=== PATIENT | male | born 1960 | race Hispanic/Latino ===

== ENCOUNTER → 2017-10-18 | Outpatient (CLI) | payer OTHER ==
[2017-10-18 11:36] LABS: BASOPHILS % (AUTO) 0.9 % (0.0-5.0); HEMATOCRIT 49.6 % (42-54); LYMPHOCYTES % (AUTO) 37.8 % (21.0-51.0); MEAN CORPUSCULAR HGB CONC 33.1 g/dL (32.0-36.0); MEAN CORPUSCULAR VOLUME 72.4 fL (79-99); MONOCYTES % (AUTO) 10.6 % (3.0-13.0); NEUTROPHILS % (AUTO) 48.7 % (40.0-77.0); NUCLEATED RED BLOOD CELLS 0.1 % (0.0-0.19); PLATELET COUNT (AUTO) 217 K/uL (130-400); RED BLOOD CELL COUNT(AUTO) 6.84 MIL/uL (4.50-6.20); RED CELL DISTRIBUTION WIDTH 16.1 % (11.0-15.5); WHITE BLOOD COUNT (AUTO) 5.5 K/uL (4.8-10.8)
[2017-10-18 11:45] LABS: HEMOGLOBIN A1C 8.6 % (4.0-6.0)
[2017-10-18 12:00] LABS: ALBUMIN 3.7 g/dL (3.5-5.0); BILIRUBIN,TOTAL 0.5 mg/dL (0.2-1.0); CREATININE 1.3 mg/dL (0.5-1.5); POTASSIUM 4.1 mmol/L (3.5-5.1); THYROID STIMULATING HORMONE 1.19 uIU/mL (0.36-3.74); TOTAL PROTEIN, SERUM 8.8 g/dL (6.0-8.3)
== END | disposition home or self-care (01) ==
LOC: LAB 10:48
PROVIDERS: ATTEND Family Medicine
DX: E11.9 Type 2 diabetes mellitus without complications (principal); I10 Essential (primary) hypertension; E66.9 Obesity, unspecified; R97.20 Elevated prostate specific antigen [PSA]
CPT/HCPCS: 36415; 80053; 80061; 83036; 84153; 84443; 85025

== ENCOUNTER → 2018-10-22 | Outpatient (CLI) | payer OTHER ==
[2018-10-22 12:17] LABS: BASOPHILS % (AUTO) 1.4 % (0.0-5.0); EOSINOPHILS % (AUTO) 2.4 % (0.0-8.0); HEMATOCRIT 52.2 % (42-54); LYMPHOCYTES % (AUTO) 38.4 % (21.0-51.0); MEAN CORPUSCULAR HEMOGLOBIN 23.5 pg (27.0-33.0); MEAN CORPUSCULAR HGB CONC 32.4 g/dL (32.0-36.0); MEAN CORPUSCULAR VOLUME 72.6 fL (79-99); NEUTROPHILS % (AUTO) 47.8 % (40.0-77.0); NUCLEATED RED BLOOD CELLS 0.1 % (0.0-0.19); PLATELET COUNT (AUTO) 213 K/uL (130-400); RED BLOOD CELL COUNT(AUTO) 7.18 MIL/uL (4.50-6.20); WHITE BLOOD COUNT (AUTO) 5.9 K/uL (4.8-10.8)
[2018-10-22 12:39] LABS: ALBUMIN 3.6 g/dL (3.5-5.0); BILIRUBIN,TOTAL 0.5 mg/dL (0.2-1.0); CREATININE 1.2 mg/dL (0.5-1.5); POTASSIUM 4.1 mmol/L (3.5-5.1); THYROID STIMULATING HORMONE 0.85 uIU/mL (0.36-3.74); TOTAL PROTEIN, SERUM 8.4 g/dL (6.0-8.3)
== END | disposition home or self-care (01) ==
LOC: LAB 11:33
PROVIDERS: ATTEND Family Medicine
DX: Z76.0 Encounter for issue of repeat prescription (principal); I10 Essential (primary) hypertension; E11.9 Type 2 diabetes mellitus without complications; E66.9 Obesity, unspecified
CPT/HCPCS: 36415; 80053; 80061; 84443; 85025

== ENCOUNTER → 2019-05-08 | Outpatient (CLI) | payer OTHER ==
[~2019-05-08] MED LIST: REGADENOSON 0.4 MG/5 ML PF SYG IVP SCH
== END | disposition home or self-care (01) ==
LOC: RAH 09:36
PROVIDERS: ATTEND Family Medicine
DX: I10 Essential (primary) hypertension (principal); R07.9 Chest pain, unspecified; Z82.49 Family history of ischemic heart disease and other diseases of the circulatory system
CPT/HCPCS: 78452; 93017; 96374; A9500 ×2; J2785

== ENCOUNTER → 2019-05-11 | Outpatient (CLI) | payer OTHER | END | disposition home or self-care (01) | LOC: RAH 08:59 | PROVIDERS: ATTEND Family Medicine | DX: Z13.6 Encounter for screening for cardiovascular disorders (principal) | CPT/HCPCS: 75571 ==

== ENCOUNTER → 2020-01-08 | Outpatient (CLI) | payer OTHER ==
[~2020-01-08] MED LIST changes: +AMLO10TA7 PO; +LISI1TAB51 PO; -REGADENOSON 0.4 MG/5 ML PF SYG IVP SCH
== END | disposition home or self-care (01) ==
LOC: LAB 09:14
PROVIDERS: ATTEND Family Medicine
DX: Z12.5 Encounter for screening for malignant neoplasm of prostate (principal); I10 Essential (primary) hypertension; E11.9 Type 2 diabetes mellitus without complications; Z12.11 Encounter for screening for malignant neoplasm of colon
CPT/HCPCS: 36415; 80053; 80061; 82043; 83036; 84153; 84443; 85025

== ENCOUNTER 2020-01-09 10:20 | Inpatient (IN) | payer OTHER ==
[~2020-01-09] VITALS: Ht 172.7 cm; Wt 88.0 kg
[2020-01-09] MEDS ORDERED: IOHEXOL-350 75 ML VIAL IV ONE (10:30)
[2020-01-09 10:36] LABS: BASOPHILS % (AUTO) 0.8 % (0.0-5.0); EOSINOPHILS % (AUTO) 1.6 % (0.0-8.0); HEMATOCRIT 53.4 % (42-54); LYMPHOCYTES % (AUTO) 38.7 % (21.0-51.0); MEAN CORPUSCULAR HEMOGLOBIN 28.8 pg (27.0-33.0); MEAN CORPUSCULAR HGB CONC 35.6 g/dL (32.0-36.0); NEUTROPHILS % (AUTO) 48.4 % (40.0-77.0); PLATELET COUNT (AUTO) 182 K/uL (130-400); RED BLOOD CELL COUNT(AUTO) 6.59 MIL/uL (4.50-6.20); RED CELL DISTRIBUTION WIDTH 13.2 % (11.0-15.5); WHITE BLOOD COUNT (AUTO) 6.4 K/uL (4.8-10.8)
[2020-01-09 10:45] LABS: CREATININE 1.3 mg/dL (0.5-1.5); POTASSIUM 3.8 mmol/L (3.5-5.1)
[2020-01-09 10:46] LABS: INR 1.12 (0.85-1.15); PARTIAL THROMBOPLASTIN TIME 28.7 SEC (26.3-35.5)
[2020-01-09 10:50] LABS: ALBUMIN 3.7 g/dL (3.5-5.0); BILIRUBIN,TOTAL 0.9 mg/dL (0.2-1.0)
[2020-01-09] MEDS ORDERED: ASPIRIN 325 MG TABLET ONE (12:26)
[2020-01-09 13:33] LABS: HEMOGLOBIN A1C 8.9 % (4.0-6.0)
[2020-01-09 16:00] VITALS: BP 139/103
--- NOTE | 2020-01-09 16:35 | NUR ---
DR. TYLER ALONZO CALLED DR. SCOTT AND READ THE RESULTS OF MR OF HEAD, STATED HE WILL BE CALLING DR. DELAROSA. NO NEW ORDERS AT THIS TIME.
[2020-01-09] MEDS ORDERED: LISI1TAB51 PO (16:50)
[2020-01-09] MEDS ORDERED: AMLO10TA7 PO (16:50)
--- NOTE | 2020-01-09 17:00 | NUR ---
bed side swallow patient was able to sip water without any complication.
--- NOTE | 2020-01-09 17:30 | NUR ---
DR. SCOTT SPOKE TO DR. DELAROSA AND HE WILL COME TO SEE PATIENT ON SATURDAY
[2020-01-09] MEDS: SODIUM CHLORIDE 0.9% 1000ML 1,000 ML IV SCH (17:36)
[2020-01-09] MEDS: INSULIN HUMULIN R 100 UNIT/ML 3ML SQ SCH ×2 (17:44→20:57)
--- NOTE | 2020-01-09 19:31 | NUR ---
spoke with charge nurse amy. she adviced me to claridy order with nurse cole rn, tomorrow about neuro consult narro or neurovascular consult doctor tyrel. patient already had a telecommunication consult with a neuro doctor.
[2020-01-09 19:52] VITALS: BP 136/97
[2020-01-10 00:21] VITALS: BP 149/102
[2020-01-10 03:55] VITALS: BP 133/85
[2020-01-10 03:56] LABS: BASOPHILS % (AUTO) 0.6 % (0.0-5.0); HEMATOCRIT 48.4 % (42-54); LYMPHOCYTES % (AUTO) 36.7 % (21.0-51.0); MEAN CORPUSCULAR HEMOGLOBIN 28.6 pg (27.0-33.0); MEAN CORPUSCULAR HGB CONC 34.9 g/dL (32.0-36.0); MEAN CORPUSCULAR VOLUME 81.9 fL (79-99); MONOCYTES % (AUTO) 10.5 % (3.0-13.0); NEUTROPHILS % (AUTO) 49.9 % (40.0-77.0); PLATELET COUNT (AUTO) 187 K/uL (130-400); RED BLOOD CELL COUNT(AUTO) 5.91 MIL/uL (4.50-6.20); RED CELL DISTRIBUTION WIDTH 12.7 % (11.0-15.5); WHITE BLOOD COUNT (AUTO) 7.1 K/uL (4.8-10.8)
[2020-01-10 04:04] LABS: HEMOGLOBIN A1C 9.3 % (4.0-6.0)
[2020-01-10 04:20] LABS: ALBUMIN 3.1 g/dL (3.5-5.0); BILIRUBIN,TOTAL 0.7 mg/dL (0.2-1.0); CREATININE 1.2 mg/dL (0.5-1.5); POTASSIUM 3.5 mmol/L (3.5-5.1); TOTAL PROTEIN, SERUM 7.8 g/dL (6.0-8.3)
[2020-01-10] MEDS: INSULIN HUMULIN R 100 UNIT/ML 3ML SQ SCH ×4 (06:13→21:00)
[2020-01-10] MEDS: SODIUM CHLORIDE 0.9% 1000ML 1,000 ML IV SCH (06:28)
[2020-01-10 08:00] VITALS: BP 142/73
[2020-01-10] MEDS ORDERED: ERGOCALCIFEROL (VITAMIN D2) 50,000 UNIT CAPSULE PO SCH (08:30)
[2020-01-10 08:55] LABS: CRP QUANTITATIVE 3.5 mg/L (0.00-9.0)
[2020-01-10] MEDS ORDERED: ENOXAPARIN SODIUM 40 MG/0.4 ML SYRINGE SQ SCH (09:00)
[2020-01-10] MEDS: ACETYLCYSTEINE 20% 200MG/ML 4ML VIAL PO SCH ×2 (09:00→19:38)
--- NOTE | 2020-01-10 09:05 | NUR ---
DR. COATS SPOKE TO MD VIA TELEPHONE. TOLD ME THAT NO NEUROSURGICAL INTERVENTIONS NEEDED, BUT THAT HE RECOMMENDS AGGRESSIVE MEDICAL MANAGEMENT AND TRANSFER TO [facility]. SPOKE TO DR. Tyson GARCIA REGARDING DR. COATS RECOMMENDATIONS AND DR. GARCIA REPLIED THAT PATIENT CONDITION DOES NOT WARRANT A TRANSFER [place] [facility].
[2020-01-10] MEDS: HYDROCHLOROTHIAZIDE 25 MG TABLET PO SCH (10:36)
[2020-01-10] MEDS: ASPIRIN 81MG TAB.CHEW PO SCH (10:42)
[2020-01-10] MEDS: LISINOPRIL 20 MG TABLET PO SCH (10:42)
[2020-01-10] MEDS: ZINC SULFATE 220 CAPSULE PO SCH (10:43)
[2020-01-10] MEDS: AMLODIPINE BESYLATE 5 MG TAB PO SCH (10:43)
[2020-01-10] MEDS: CLOPIDOGREL BISULFATE 75 MG TAB PO SCH (10:43)
[2020-01-10] MEDS: ASCORBIC ACID 500 MG TAB PO SCH (10:43)
[2020-01-10] MEDS: ENOXAPARIN SODIUM 40 MG/0.4 ML SYRINGE SQ SCH (10:46)
[2020-01-10] MEDS: ATORVASTATIN CALCIUM 20 MG TABLET PO SCH (10:46)
[2020-01-10 11:00] VITALS: BP 140/94
--- NOTE | 2020-01-10 15:34 | NUR ---
INITIAL: Call placed to pt's room this afternoon to discuss dcp. Pt mentions that prior to admission he was living w his spouse and 2 adult children. Pt is independent w ambulation and ADLs, he does not own any DME or receive services. PT states that he feels safe and comfortable to return home at mo. CM to continue to follow and wait for Md recommendations. Addendum: 01/10/20 at 1554 by OPAL CHRISTIANSEN Amended: Links added.
[2020-01-10 16:00] VITALS: BP 128/93
[2020-01-10 20:00] VITALS: BP 159/99
[2020-01-11] VITALS: BP 119/83
[2020-01-11 04:00] VITALS: BP 123/85
[2020-01-11 05:33] LABS: BASOPHILS % (AUTO) 0.4 % (0.0-5.0); EOSINOPHILS % (AUTO) 1.4 % (0.0-8.0); HEMATOCRIT 50.1 % (42-54); LYMPHOCYTES % (AUTO) 34.5 % (21.0-51.0); MEAN CORPUSCULAR HEMOGLOBIN 28.3 pg (27.0-33.0); MEAN CORPUSCULAR HGB CONC 34.7 g/dL (32.0-36.0); MEAN CORPUSCULAR VOLUME 81.5 fL (79-99); MONOCYTES % (AUTO) 10.6 % (3.0-13.0); NEUTROPHILS % (AUTO) 52.8 % (40.0-77.0); PLATELET COUNT (AUTO) 180 K/uL (130-400); RED BLOOD CELL COUNT(AUTO) 6.15 MIL/uL (4.50-6.20); RED CELL DISTRIBUTION WIDTH 12.8 % (11.0-15.5)
[2020-01-11 05:46] LABS: ALBUMIN 3.1 g/dL (3.5-5.0); CREATININE 1.2 mg/dL (0.5-1.5); CRP QUANTITATIVE 3.4 mg/L (0.00-9.0); POTASSIUM 3.6 mmol/L (3.5-5.1); TOTAL PROTEIN, SERUM 7.9 g/dL (6.0-8.3)
[2020-01-11] MEDS: INSULIN HUMULIN R 100 UNIT/ML 3ML SQ SCH ×4 (06:15→21:00)
[2020-01-11 08:00] VITALS: BP 121/85
[2020-01-11] MEDS: LISINOPRIL 20 MG TABLET PO SCH (09:00)
[2020-01-11] MEDS: AMLODIPINE BESYLATE 5 MG TAB PO SCH (09:00)
[2020-01-11] MEDS: HYDROCHLOROTHIAZIDE 25 MG TABLET PO SCH (09:00)
[2020-01-11] MEDS: ACETYLCYSTEINE 20% 200MG/ML 4ML VIAL PO SCH ×2 (09:00→19:18)
[2020-01-11] MEDS: ASPIRIN 81MG TAB.CHEW PO SCH (09:12)
[2020-01-11] MEDS: ATORVASTATIN CALCIUM 20 MG TABLET PO SCH (09:13)
[2020-01-11] MEDS: ZINC SULFATE 220 CAPSULE PO SCH (09:13)
[2020-01-11] MEDS: CLOPIDOGREL BISULFATE 75 MG TAB PO SCH (09:13)
[2020-01-11] MEDS: ASCORBIC ACID 500 MG TAB PO SCH (09:13)
[2020-01-11] MEDS: ENOXAPARIN SODIUM 40 MG/0.4 ML SYRINGE SQ SCH (09:14)
--- NOTE | 2020-01-11 09:40 | NUR ---
DYSPHAGIA EVAL COMPLETED -S/S OF ASPIRATION AT THIS TIME. RECOMMEND REGULAR SOLIDS, THIN LIQUIDS, PILLS WHOLE WITH LIQUIDS TOLERATED. LIFE SCIENCE RESEARCH ASSISTANT REVIEWED RESULTS AND RECOMMENDATIONS WITH NURSE VINICIO AND PATIENT. PATIENT VOICED UNDERSTANDING OF RISKS AND CONSEQUENCES OF ASPIRATION. Addendum: 01/11/[address] CELINE ACSTELLANO Amended: Links added.
[2020-01-11 12:00] VITALS: BP 119/89
[2020-01-11] MEDS: GABAPENTIN 100 MG CAPSULE PO SCH ×2 (15:12→21:37)
[2020-01-11 16:00] VITALS: BP 139/88
[2020-01-11 19:30] VITALS: BP 134/91
[2020-01-12] VITALS (7 sets, daily range): BP systolic 128–176; BP diastolic 82–96
[2020-01-12 05:04] LABS: BASOPHILS % (AUTO) 0.4 % (0.0-5.0); HEMATOCRIT 48.3 % (42-54); LYMPHOCYTES % (AUTO) 37.1 % (21.0-51.0); MEAN CORPUSCULAR HEMOGLOBIN 28.8 pg (27.0-33.0); MEAN CORPUSCULAR HGB CONC 35.2 g/dL (32.0-36.0); MEAN CORPUSCULAR VOLUME 81.7 fL (79-99); MONOCYTES % (AUTO) 10.7 % (3.0-13.0); NEUTROPHILS % (AUTO) 48.5 % (40.0-77.0); PLATELET COUNT (AUTO) 183 K/uL (130-400); RED BLOOD CELL COUNT(AUTO) 5.91 MIL/uL (4.50-6.20); RED CELL DISTRIBUTION WIDTH 12.8 % (11.0-15.5); WHITE BLOOD COUNT (AUTO) 6.7 K/uL (4.8-10.8)
[2020-01-12 05:32] LABS: ALBUMIN 3.1 g/dL (3.5-5.0); BILIRUBIN,TOTAL 0.8 mg/dL (0.2-1.0); CREATININE 1.1 mg/dL (0.5-1.5); CRP QUANTITATIVE 2.8 mg/L (0.00-9.0); POTASSIUM 3.3 mmol/L (3.5-5.1); TOTAL PROTEIN, SERUM 7.7 g/dL (6.0-8.3)
[2020-01-12] MEDS: INSULIN HUMULIN R 100 UNIT/ML 3ML SQ SCH ×4 (05:37→20:41)
[2020-01-12] MEDS ORDERED: POTASSIUM CHLORIDE 20 MEQ ERTAB PO SCH (08:30)
[2020-01-12] MEDS: HYDROCHLOROTHIAZIDE 25 MG TABLET PO SCH (09:00)
[2020-01-12] MEDS: ACETYLCYSTEINE 20% 200MG/ML 4ML VIAL PO SCH ×2 (09:00→19:33)
[2020-01-12] MEDS: AMLODIPINE BESYLATE 5 MG TAB PO SCH (09:00)
[2020-01-12] MEDS: LISINOPRIL 20 MG TABLET PO SCH (09:00)
[2020-01-12] MEDS: ASPIRIN 81MG TAB.CHEW PO SCH (11:25)
[2020-01-12] MEDS: ASCORBIC ACID 500 MG TAB PO SCH (11:25)
[2020-01-12] MEDS: ZINC SULFATE 220 CAPSULE PO SCH (11:26)
[2020-01-12] MEDS: GABAPENTIN 100 MG CAPSULE PO SCH ×3 (11:28→20:33)
[2020-01-12] MEDS: CLOPIDOGREL BISULFATE 75 MG TAB PO SCH (11:28)
[2020-01-12] MEDS: ENOXAPARIN SODIUM 40 MG/0.4 ML SYRINGE SQ SCH (11:29)
[2020-01-12] MEDS: ATORVASTATIN CALCIUM 20 MG TABLET PO SCH (11:37)
[2020-01-13 03:51] VITALS: BP 124/87
[2020-01-13 04:38] LABS: BASOPHILS % (AUTO) 0.8 % (0.0-5.0); HEMATOCRIT 48.3 % (42-54); LYMPHOCYTES % (AUTO) 31.6 % (21.0-51.0); MEAN CORPUSCULAR HEMOGLOBIN 28.5 pg (27.0-33.0); MEAN CORPUSCULAR HGB CONC 35.2 g/dL (32.0-36.0); MONOCYTES % (AUTO) 10.4 % (3.0-13.0); PLATELET COUNT (AUTO) 180 K/uL (130-400); RED BLOOD CELL COUNT(AUTO) 5.96 MIL/uL (4.50-6.20); RED CELL DISTRIBUTION WIDTH 12.7 % (11.0-15.5); WHITE BLOOD COUNT (AUTO) 6.6 K/uL (4.8-10.8)
[2020-01-13 05:53] LABS: CRP QUANTITATIVE 7.1 mg/L (0.00-9.0)
[2020-01-13] MEDS: INSULIN HUMULIN R 100 UNIT/ML 3ML SQ SCH ×4 (07:30→20:16)
[2020-01-13 08:00] VITALS: BP 134/89
[2020-01-13] MEDS: HYDROCHLOROTHIAZIDE 25 MG TABLET PO SCH (08:14)
[2020-01-13] MEDS: LISINOPRIL 20 MG TABLET PO SCH (08:14)
[2020-01-13] MEDS: CLOPIDOGREL BISULFATE 75 MG TAB PO SCH (08:15)
[2020-01-13] MEDS: AMLODIPINE BESYLATE 5 MG TAB PO SCH (08:15)
[2020-01-13] MEDS: GABAPENTIN 100 MG CAPSULE PO SCH ×3 (08:15→20:14)
[2020-01-13] MEDS: ATORVASTATIN CALCIUM 20 MG TABLET PO SCH (08:15)
[2020-01-13] MEDS: ASPIRIN 81MG TAB.CHEW PO SCH (08:15)
[2020-01-13] MEDS: ASCORBIC ACID 500 MG TAB PO SCH (08:15)
[2020-01-13] MEDS: ZINC SULFATE 220 CAPSULE PO SCH (08:15)
[2020-01-13] MEDS: ACETYLCYSTEINE 20% 200MG/ML 4ML VIAL PO SCH ×2 (08:16→20:13)
[2020-01-13] MEDS: ENOXAPARIN SODIUM 40 MG/0.4 ML SYRINGE SQ SCH (08:16)
[2020-01-13 12:00] VITALS: BP 141/86
[2020-01-13 16:00] VITALS: BP 130/83
--- NOTE | 2020-01-13 16:23 | NUR ---
CM Note: pt declined placement CM spoke to pt discussed MD recommendations for rehab vs hh, pt declined placement at this time, informed pt copay for HH, pt at this time declined HH at home, verbalized he will be able to do excercise PT taught him and more at home, pt verbalized he has good support at home, spouse able to assist with needs as necessary, pt plans to continue w/exercises at home. Preferred to go home instead, spouse able to assist with transportation and needs as necessary. Dr Payton made aware. DC plan to home once pt stable. Primary nurse aware. CM to cont to follow up.
[2020-01-13 19:30] VITALS: BP 133/96
[2020-01-13 23:59] VITALS: BP 123/89
[2020-01-14 04:00] VITALS: BP 125/82
[2020-01-14 05:05] LABS: BASOPHILS % (AUTO) 0.8 % (0.0-5.0); EOSINOPHILS % (AUTO) 3.5 % (0.0-8.0); HEMATOCRIT 49.2 % (42-54); LYMPHOCYTES % (AUTO) 24.1 % (21.0-51.0); MEAN CORPUSCULAR HEMOGLOBIN 28.8 pg (27.0-33.0); MEAN CORPUSCULAR HGB CONC 35.6 g/dL (32.0-36.0); MEAN CORPUSCULAR VOLUME 80.9 fL (79-99); MONOCYTES % (AUTO) 11.3 % (3.0-13.0); PLATELET COUNT (AUTO) 193 K/uL (130-400); RED BLOOD CELL COUNT(AUTO) 6.08 MIL/uL (4.50-6.20); RED CELL DISTRIBUTION WIDTH 12.7 % (11.0-15.5); WHITE BLOOD COUNT (AUTO) 7.7 K/uL (4.8-10.8)
[2020-01-14 05:36] LABS: CREATININE 1.2 mg/dL (0.5-1.5); POTASSIUM 3.2 mmol/L (3.5-5.1)
[2020-01-14] MEDS: INSULIN HUMULIN R 100 UNIT/ML 3ML SQ SCH ×4 (05:47→22:25)
[2020-01-14 08:24] VITALS: BP 118/74
[2020-01-14] MEDS: ACETYLCYSTEINE 20% 200MG/ML 4ML VIAL PO SCH ×2 (08:42→21:00)
[2020-01-14] MEDS: ATORVASTATIN CALCIUM 20 MG TABLET PO SCH (08:42)
[2020-01-14] MEDS: AMLODIPINE BESYLATE 5 MG TAB PO SCH (08:42)
[2020-01-14] MEDS: ZINC SULFATE 220 CAPSULE PO SCH (08:42)
[2020-01-14] MEDS: GABAPENTIN 100 MG CAPSULE PO SCH ×3 (08:42→22:14)
[2020-01-14] MEDS: CLOPIDOGREL BISULFATE 75 MG TAB PO SCH (08:42)
[2020-01-14] MEDS: ASPIRIN 81MG TAB.CHEW PO SCH (08:43)
[2020-01-14] MEDS: ASCORBIC ACID 500 MG TAB PO SCH (08:43)
[2020-01-14] MEDS: ENOXAPARIN SODIUM 40 MG/0.4 ML SYRINGE SQ SCH (08:44)
[2020-01-14] MEDS ORDERED: POTASSIUM CHLORIDE 20 MEQ ERTAB PO SCH (10:30)
[2020-01-14] MEDS ORDERED: MAGNESIUM 2GM PREMIX 50ML 50 ML IV SCH (10:30)
[2020-01-14 11:44] VITALS: BP 120/78
--- NOTE | 2020-01-14 13:20 | NUR ---
CM Note: [facility] IRU pending approval CM spoke to pt discussed PT recommendations for rehab as pt only ambulated 50ft today. Pt is now agreeable. Telephone consent obtained GABRIEL for [facility] IRU, witnessed by Vaishnavi IRVIN. Faxed order, clinicals, PT, covid transfer form and result, confirmation received. Pt pending approval. MOT semi-filled out, pending to be completed once approved, flagged in chart. As per pt will transfer via private car, nephew/spouse will be able to assist with transportation. Primary nurse aware. CM to cont to follow up.
--- NOTE | 2020-01-14 15:31 | NUR ---
CM Note: [facility] IRU pending approval CM spoke to Elisabeth recinos/[facility] received request, currently under review w/admin, pending approval at this time. Primary nurse aware. CM to cont to follow up.
[2020-01-14 16:15] VITALS: BP 133/89
--- NOTE | 2020-01-14 16:54 | NUR ---
CM Note: [facility] approval CM spoke to Elisabeth recinos/[facility] IRU, pt has approval. MOT filled out pending and narciso jama to sign. Pt made aware of approval. As per pt will have spouse/nephew transport via private car tomorrow. Informed pt will order covid rapid per [facility] ordinance protocol for placement, pt agreeable. Primary nurse Nani made aware. Dr Payton updated. CM to cont to follow up.
[2020-01-14 19:50] VITALS: BP 120/88
[2020-01-14 23:35] VITALS: BP 134/93
[2020-01-15 03:12] VITALS: BP 106/78
[2020-01-15 06:01] LABS: CREATININE 1.1 mg/dL (0.5-1.5); MAGNESIUM 1.8 mg/dL (1.80-2.40); POTASSIUM 3.7 mmol/L (3.5-5.1)
[2020-01-15] MEDS: INSULIN HUMULIN R 100 UNIT/ML 3ML SQ SCH ×3 (06:40→18:35)
[2020-01-15 08:00] VITALS: BP 133/85
[2020-01-15] MEDS: ACETYLCYSTEINE 20% 200MG/ML 4ML VIAL PO SCH (09:00)
[2020-01-15] MEDS: ASPIRIN 81MG TAB.CHEW PO SCH (09:48)
[2020-01-15] MEDS: GABAPENTIN 100 MG CAPSULE PO SCH ×2 (09:49→13:57)
[2020-01-15] MEDS: ATORVASTATIN CALCIUM 20 MG TABLET PO SCH (09:50)
[2020-01-15] MEDS: ASCORBIC ACID 500 MG TAB PO SCH (09:50)
[2020-01-15] MEDS: ZINC SULFATE 220 CAPSULE PO SCH (09:50)
[2020-01-15] MEDS: CLOPIDOGREL BISULFATE 75 MG TAB PO SCH (09:51)
[2020-01-15] MEDS: AMLODIPINE BESYLATE 5 MG TAB PO SCH (09:51)
[2020-01-15] MEDS: ENOXAPARIN SODIUM 40 MG/0.4 ML SYRINGE SQ SCH (09:55)
[2020-01-15 12:00] VITALS: BP 134/90
[2020-01-15 16:00] VITALS: BP 129/88
[2020-01-15] MEDS ORDERED: METFORMIN HCL 500 MG TABLET PO SCH (17:00)
== END 2020-01-15 19:25 | disposition short-term general hospital (02) | DRG 66 ==
LOC: EDH 10:20 → EDHIP 12:43 → OBSVTOIN 12:43 → 3CH 14:49 → 3DH 01-10 10:27
PROVIDERS: ADMIT Internal Medicine; ATTEND Internal Medicine
DX: I63.9 Cerebral infarction, unspecified (principal); I10 Essential (primary) hypertension; E11.9 Type 2 diabetes mellitus without complications; Z20.828 Contact with and (suspected) exposure to other viral communicable diseases; Z86.73 Personal history of transient ischemic attack (TIA), and cerebral infarction without residual deficits; Z87.891 Personal history of nicotine dependence
CPT/HCPCS: 36415; 70450; 70496; 70498; 70544; 70551; 71045; 80048; 80053; 80061; 82550; 82728; 82948; 83036; 83615; 83721; 83735; 83880; 84132; 84145; 84443; 84484; 85025; 85378; 85610; 85651; 85730; 86140; 87426; 92610; 93005; 93306; 93356; 97039; G0378; J1650; J1815; J3475; J7608; Q9967; U0003

== ENCOUNTER → 2020-05-04 | Outpatient (CLI) | payer OTHER ==
[~2020-05-04] MED LIST changes: +AMLO-258 PO; -AMLO10TA7 PO
[2020-05-04 09:57] LABS: BASOPHILS % (AUTO) 0.5 % (0.0-5.0); EOSINOPHILS % (AUTO) 2.7 % (0.0-8.0); HEMATOCRIT 47.8 % (42-54); LYMPHOCYTES % (AUTO) 32.1 % (21.0-51.0); MEAN CORPUSCULAR HEMOGLOBIN 29.1 pg (27.0-33.0); MEAN CORPUSCULAR HGB CONC 34.5 g/dL (32.0-36.0); MEAN CORPUSCULAR VOLUME 84.3 fL (79-99); MONOCYTES % (AUTO) 9.5 % (3.0-13.0); NEUTROPHILS % (AUTO) 54.9 % (40.0-77.0); PLATELET COUNT (AUTO) 220 K/uL (130-400); RED BLOOD CELL COUNT(AUTO) 5.67 MIL/uL (4.50-6.20); RED CELL DISTRIBUTION WIDTH 13.5 % (11.0-15.5); WHITE BLOOD COUNT (AUTO) 5.9 K/uL (4.8-10.8)
[2020-05-04 10:06] LABS: HEMOGLOBIN A1C 5.5 % (4.0-6.0)
[2020-05-04 10:20] LABS: ALBUMIN 3.9 g/dL (3.5-5.0); BILIRUBIN,TOTAL 0.7 mg/dL (0.2-1.0); CREATININE 1.1 mg/dL (0.5-1.5); POTASSIUM 4.2 mmol/L (3.5-5.1); THYROID STIMULATING HORMONE 1.01 uIU/mL (0.36-3.74); TOTAL PROTEIN, SERUM 8.8 g/dL (6.0-8.3)
== END | disposition home or self-care (01) ==
LOC: LAB 09:14
PROVIDERS: ATTEND Family Medicine
DX: E11.65 Type 2 diabetes mellitus with hyperglycemia (principal)
CPT/HCPCS: 36415; 80053; 80061; 82043; 83036; 84443; 85025

== ENCOUNTER → 2020-07-06 | Outpatient (CLI) | payer OTHER ==
[2020-07-06 12:40] LABS: CREATININE 1.2 mg/dL (0.5-1.5)
== END | disposition home or self-care (01) ==
LOC: LAB 11:46
PROVIDERS: ATTEND Psychiatry & Neurology Neurology
DX: I63.9 Cerebral infarction, unspecified (principal)
CPT/HCPCS: 36415; 82565; 84520

== ENCOUNTER → 2020-07-08 | Outpatient (CLI) | payer OTHER ==
[~2020-07-08] MED LIST changes: +GADODIAMIDE 10 MMOL/20 ML VIAL IV ONE
== END | disposition home or self-care (01) ==
LOC: RAH 08:01
PROVIDERS: ATTEND Psychiatry & Neurology Neurology
DX: G31.89 Other specified degenerative diseases of nervous system (principal); I63.9 Cerebral infarction, unspecified
CPT/HCPCS: 70553; A9579

== ENCOUNTER → 2020-09-08 | Outpatient (CLI) | payer OTHER ==
[~2020-09-08] MED LIST changes: -GADODIAMIDE 10 MMOL/20 ML VIAL IV ONE
[2020-09-08 10:47] LABS: BASOPHILS % (AUTO) 0.7 % (0.0-5.0); EOSINOPHILS % (AUTO) 1.6 % (0.0-8.0); HEMATOCRIT 50.4 % (42-54); LYMPHOCYTES % (AUTO) 22.2 % (21.0-51.0); MEAN CORPUSCULAR HEMOGLOBIN 28.1 pg (27.0-33.0); MEAN CORPUSCULAR HGB CONC 33.7 g/dL (32.0-36.0); MEAN CORPUSCULAR VOLUME 83.3 fL (79-99); MONOCYTES % (AUTO) 4.9 % (3.0-13.0); NEUTROPHILS % (AUTO) 70.3 % (40.0-77.0); PLATELET COUNT (AUTO) 221 K/uL (130-400); RED BLOOD CELL COUNT(AUTO) 6.05 MIL/uL (4.50-6.20); RED CELL DISTRIBUTION WIDTH 12.9 % (11.0-15.5); WHITE BLOOD COUNT (AUTO) 7.6 K/uL (4.8-10.8)
[2020-09-08 11:15] LABS: ALBUMIN 4.1 g/dL (3.5-5.0); CREATININE 1.3 mg/dL (0.5-1.5); THYROID STIMULATING HORMONE 0.94 uIU/mL (0.36-3.74); TOTAL PROTEIN, SERUM 9.2 g/dL (6.0-8.3)
[2020-09-08 11:32] LABS: HEMOGLOBIN A1C 5.7 % (4.0-6.0)
== END | disposition home or self-care (01) ==
LOC: RAH 09:44
PROVIDERS: ATTEND Family Medicine
DX: M43.17 Spondylolisthesis, lumbosacral region (principal); M51.37 Other intervertebral disc degeneration, lumbosacral region; M48.07 Spinal stenosis, lumbosacral region; E11.65 Type 2 diabetes mellitus with hyperglycemia
CPT/HCPCS: 36415; 72100; 80053; 80061; 82043; 83036; 84443; 85025

== ENCOUNTER → 2021-07-06 | Outpatient (CLI) | payer OTHER ==
[2021-07-06 09:48] LABS: HEMATOCRIT 46.2 % (42-54); LYMPHOCYTES % (AUTO) 31.5 % (21.0-51.0); MEAN CORPUSCULAR HEMOGLOBIN 27.8 pg (27.0-33.0); MEAN CORPUSCULAR HGB CONC 33.3 g/dL (32.0-36.0); MEAN CORPUSCULAR VOLUME 83.5 fL (79-99); MONOCYTES % (AUTO) 11.9 % (3.0-13.0); NEUTROPHILS % (AUTO) 51.5 % (40.0-77.0); PLATELET COUNT (AUTO) 206 K/uL (130-400); RED BLOOD CELL COUNT(AUTO) 5.53 MIL/uL (4.50-6.20); RED CELL DISTRIBUTION WIDTH 13.1 % (11.0-15.5); WHITE BLOOD COUNT (AUTO) 6.8 K/uL (4.8-10.8)
[2021-07-06 09:57] LABS: HEMOGLOBIN A1C 5.3 % (4.0-6.0)
[2021-07-06 10:00] LABS: ALBUMIN 3.9 g/dL (3.5-5.0); BILIRUBIN,TOTAL 0.4 mg/dL (0.2-1.0); CREATININE 1.1 mg/dL (0.5-1.5); POTASSIUM 4.7 mmol/L (3.5-5.1); TOTAL PROTEIN, SERUM 8.4 g/dL (6.0-8.3)
== END | disposition home or self-care (01) ==
LOC: LAB 10:00
PROVIDERS: ATTEND Family Medicine
DX: E78.2 Mixed hyperlipidemia (principal); E11.69 Type 2 diabetes mellitus with other specified complication
CPT/HCPCS: 36415; 80053; 80061; 82043; 83036; 85025

== ENCOUNTER 2022-02-12 09:11 | Day surgery (SDC) | payer OTHER ==
[~2022-02-12 09:11] MED LIST changes: +ASPI-1197 PO; +FISH1CAP20 PO; +GABA-529 PO; +L.AC1CAP6 PO; -LISI1TAB51 PO; +LISI40TA9 PO; +METF-444 PO; +VIT1TAB.18 PO
[2022-02-12 09:56] VITALS: BP 132/86
[2022-02-12] MEDS ORDERED: 0.9%NACL 1000ML 1,000 ML IV ONE (10:16)
[2022-02-12] MEDS ORDERED: LIDOCAINE HCL 1% 20 ML VIAL ONE (11:51)
[2022-02-12] MEDS ORDERED: PROPOFOL 10 MG/ML 20ML VIAL IV ONE (11:51)
[2022-02-12 12:30] VITALS: BP 120/76
[2022-02-12 12:35] VITALS: BP 118/80
[2022-02-12 12:40] VITALS: BP 125/88
[2022-02-12 12:45] VITALS: BP 116/85
[2022-02-12 12:50] VITALS: BP 130/86
== END 2022-02-12 12:53 | disposition home or self-care (01) ==
LOC: DAH 09:11 → ENDO 09:11 → EDSTATUS 02-13 13:00
PROVIDERS: ATTEND Internal Medicine Gastroenterology
DX: Z12.11 Encounter for screening for malignant neoplasm of colon (principal); K63.5 Polyp of colon; K64.9 Unspecified hemorrhoids; K57.30 Diverticulosis of large intestine without perforation or abscess without bleeding; I10 Essential (primary) hypertension; Z86.73 Personal history of transient ischemic attack (TIA), and cerebral infarction without residual deficits; Z98.890 Other specified postprocedural states; Z79.82 Long term (current) use of aspirin; Z79.84 Long term (current) use of oral hypoglycemic drugs; Z79.01 Long term (current) use of anticoagulants; Z79.899 Other long term (current) drug therapy
CPT/HCPCS: 87426; 45380; 82948; J7030; J2704; A4620; A4215 ×2; A4223; A4222; A4221; A4663; A4606

== ENCOUNTER → 2022-02-13 | Outpatient (CLI) | payer OTHER | END | disposition home or self-care (01) | LOC: RAH 12:45 | PROVIDERS: ATTEND Internal Medicine Cardiovascular Disease | DX: I10 Essential (primary) hypertension (principal) | CPT/HCPCS: 93306 ==

== ENCOUNTER → 2022-06-06 | Outpatient (CLI) | payer OTHER | END | disposition home or self-care (01) | LOC: RAH 11:19 | PROVIDERS: ATTEND Family Medicine | DX: M19.011 Primary osteoarthritis, right shoulder (principal); M25.711 Osteophyte, right shoulder | CPT/HCPCS: 73221 ==

== ENCOUNTER → 2025-04-23 | Outpatient (CLI) | payer OTHER ==
[~2025-04-23] MED LIST changes: +LISI40TA15 PO; -LISI40TA9 PO
[2025-04-23 09:05] LABS: IMMATURE GRANULOCYTE ABSOLUTE 0.01 K/uL (0-1); NUCLEATED RED BLOOD CELLS 0.0 % (0.0-0.19); PLATELET COUNT (AUTO) 267 K/uL (130-400); RED BLOOD CELL COUNT(AUTO) 5.72 MIL/uL (4.50-6.20); RED CELL DISTRIBUTION WIDTH 16.0 % (11.0-15.5); WHITE BLOOD COUNT (AUTO) 6.9 K/uL (4.8-10.8)
[2025-04-23 09:27] LABS: ASPARTATE AMINOTRANSFERASE 22.0 U/L (10-37); CREATININE 1.4 mg/dL (0.5-1.3); GLOMERULAR FILTR. RATE CALC 57.0 mL/min (>90); GLUCOSE,RANDOM 90.0 mg/dL (70-105); LDL DIRECT 97.0 mg/dL (0-99); SODIUM SERUM 138.0 mmol/L (136-145); TOTAL PROTEIN, SERUM 8.6 g/dL (6.0-8.3); UREA NITROGEN, BLOOD 19.0 mg/dL (7-18)
== END | disposition home or self-care (01) ==
LOC: LAB 08:33
PROVIDERS: ATTEND Family Medicine
DX: E78.2 Mixed hyperlipidemia (principal); E11.69 Type 2 diabetes mellitus with other specified complication
CPT/HCPCS: 36415; 80053; 80061; 82043; 82570; 83036; 84443; 85025